=== PATIENT | female | born 1960 | race Caucasian/White ===

== ENCOUNTER 2017-01-16 08:21 | Emergency (ER) | payer MEDICAID ==
[~2017-01-16] VITALS: Ht 160 cm; Wt 93.0 kg
[~2017-01-16 08:21] MED LIST: AZIT250T94 PO; CETI10TA34 PO; HYDR-3011 PO; IBUP-1542 PO; IBUP1TAB PO; MED4DP PO
[2017-01-16 08:22] VITALS: Ht 160 cm; Wt 93.0 kg
[2017-01-16] MEDS ORDERED: KETOROLAC 30 MG INJ IM STA (08:37)
--- NOTE | 2017-01-16 08:53 | ERD ---
ER Documentation Chief Complaint Date/Time DATE: 01/16/17 TIME: 08:47 Chief Complaint l knee pain for past 3 months HPI This a 56-year-old female presents the emergency department today complaining of left knee pain for the past 3 months. States that she has taken Tylenol for pain with limited improvement. States she hears "cracking". 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 Denies any fevers or chills, trauma. ROS All systems reviewed and are negative except as per history of present illness. Medications Home Meds Active Scripts Naproxen* (Naprosyn*) 500 Mg Tablet, 500 MG PO BID Y for PAIN AND/OR INFLAMMATION, #30 TAB Prov:MIK PALUMBO PA-C 01/16/17 Tramadol HCl (Tramadol HCl) 50 Mg Tablet, 50 MG PO Q4 Y for PAIN, #20 TAB Prov:MIK PALUMBO PA-C 01/16/17 Hydroxyzine Hcl* (Hydroxyzine Hcl*) 25 Mg Tablet, 25 MG PO Q8H Y for ITCHING, # 30 TAB Prov:ELISHA FREY MD 05/26/15 Ibuprofen* (Ibuprofen*) 600 Mg Tablet, 600 MG PO Q8 for PAIN AND/OR INFLAMMATION , #30 TAB Prov:ELISHA FREY MD 05/26/15 Methylprednisolone* (Medrol* DOSE PACK) 4 Mg/Dose-Pack Tab.ds.pk, 4 MG PO . DIRECTED for 10 Days, PACKET Prov:ELISHA FREY MD 05/26/15 Azithromycin* (Zithromax*) 250 Mg Tablet, 250 MG PO .ZPACK DIRECTED, #6 TAB TAKE 500 MG (2 TABS) THE FIRST DAY THEN 250 MG (1 TAB) DAYS 2-5 Prov:CANDIDO STEPHENS MD 11/02/14 Ibuprofen/Pseudoephedrine Hcl (Motrin Cold & Sinus Caplet) 1 Tab Tablet, 1 TAB PO TID Y for COUGH for 7 Days Prov:CANDIDO STEPHENS MD 11/02/14 Cetirizine Hcl* (Cetirizine Hcl*) 10 Mg Tab.chew, 10 MG PO DAILY, #30 TAB.CHEW Prov:CANDIDO STEPHENS MD 11/02/14 Allergies Allergies: Coded Allergies: No Known Allergy (Unverified , 09/27/14) PMhx/Soc History of Surgery: No Anesthesia Reaction: No Hx Neurological Disorder: No Hx Respiratory Disorders: No Hx Cardiac Disorders: No Hx Psychiatric Problems: No Hx Miscellaneous Medical Probl: No Hx Alcohol Use: No Hx Substance Use: No Hx Tobacco Use: No Physical Exam Vitals Vital Signs Date Time Temp Pulse Resp B/P Pulse Ox O2 Delivery O2 Flow Rate FiO2 01/16/17 08:22 97.8 82 18 146/74 97 Physical Exam Const: Obese, no acute distress Head: Atraumatic Eyes: Normal Conjunctiva ENT: Normal External Ears, Nose and Mouth. Neck: Full range of motion..~ No meningismus. Resp: Clear to auscultation bilaterally Cardio: Regular rate and rhythm, no murmurs Abd: Soft, non distended. Normal bowel sounds. No tenderness McBurney's. Mild Nonspecific left lower quadrant tenderness Skin: No petechiae or rashes MSK: Left knee with no obvious deformity. mild effusion. No ecchymosis. Full active range of motion with pain. Pulses 2+. Distal neurovascularly intact Neur: Awake and alert Psych: Normal Mood and Affect Results 24 hrs Current Medications Medications (Trade) Dose Ordered Sig/Louisa Route PRN Reason Start Time Stop Time Status Last Admin Dose Admin Ketorolac Tromethamine (Toradol) 30 mg ONCE STAT IM 01/16/17 08:37 01/16/17 08:38 DC 01/16/17 08:52 DIAGNOSTIC IMAGING REPORT Patient: DEBBI ROBLES : 1960 Age: 56 Sex: F [id number] DOS: 01/16/17 0000 Ordering MD: MIK PALUMBO PA-C Location: E Room/Bed: PROCEDURE: XR Knee. CLINICAL INDICATION: Left knee pain TECHNIQUE: Three views of the left knee are available for review. COMPARISON: None available FINDINGS: There is no acute fracture or dislocation. There is mild joint space narrowing of the medial compartment with minimal osseous spurring. There is also slight joint space narrowing of the patellofemoral compartment with osseous spurring. There is a moderate to large joint effusion. The soft tissues are unremarkable. RPTAT: QQ IMPRESSION: 1. No acute bony abnormality. 2. Mild osteoarthrosis of the medial and patellofemoral compartments. 3. Moderate to large joint effusion. An MRI may be helpful for additional evaluation given the joint effusion. .Layne Mcclure MD, Date Time Electronically viewed and signed by .Layne Mcclure MD, on 01/16/2017 09: 48 .T/ CC: MIK PALUMBO PA-C Procedures/MDM This is a 56-year-old female who presents the emergency department today complaining of left knee pain for the past 3 months. Patient's physical exam is benign however patient complained of pain with ambulation and therefore did obtain images given the duration of symptoms. Prior to me leaving the exam room patient mentioned that she sometimes has pain on both sides of her stomach that comes and goes for the past 3-4 months. Upon further questioning patient denied any diarrhea, constipation, fevers, vaginal bleeding. On physical exam patient described her pain as being on her left and right sides of her abdomen however there is no specific tenderness at McBurney' s and really nonspecific tenderness in the left lower quadrant. Did not feel the patient requires laboratory workup or imaging at this time. I explained to the patient that given her duration of symptoms she may follow-up with a primary care doctor. Patient indicated she did not have one and I explained to her that I will give her a list of resources. I have low suspicion for acute surgical abdomen. Patient denies any pain currently. Per the radiology report images of the left knee show no acute bony abnormality. There is mild joint space narrowing of the medial compartment with minimal osseous spurring. There is also slight joint space narrowing of the patellofemoral compartment with osseous spurring. There is a moderate to large joint effusion. Soft tissues are unremarkable. Patient's degenerative joint disease is likely the source of the patient's pain and swelling. I have explained this to her. I have explained to the patient that she needs to follow-up with a primary care doctor for referral to online marketing specialist. Patient understood Patient is afebrile and otherwise well-appearing. Low suspicion for septic joint or gout. Low suspicion for acute fracture dislocation. Patient was given Toradol here in the emergency department. She will given a short course of tramadol, Naprosyn for home. She was also given an Riley wrap. Patient declined crutches to help ambulate. At this time the patient is stable for discharge and outpatient management. Patient should follow up with their PCP in the next 1-2 days. They may return to the emergency department sooner for any persistent or worsening of symptoms. Patient understood and agreed with the plan. Departure Diagnosis: Primary Impression: Knee pain Laterality: left Chronicity: chronic Qualified Code: M25.562 - Chronic pain of left knee Condition: Fair MIK PALUMBO PA-C Jan 16, 2017 08:53
--- NOTE | 2017-01-16 09:48 | RADRPT ---
PROCEDURE: XR Knee. CLINICAL INDICATION: Left knee pain TECHNIQUE: Three views of the left knee are available for review. COMPARISON: None available FINDINGS: There is no acute fracture or dislocation. There is mild joint space narrowing of the medial compar tment with minimal osseous spurring. There is also slight joint space narrowing of the patellofemor al compartment with osseous spurring. There is a moderate to large joint effusion. The soft tissue s are unremarkable. RPTAT: QQ IMPRESSION: 1. No acute bony abnormality. 2. Mild osteoarthrosis of the medial and patellofemoral compartments. 3. Moderate to large joint effusion. An MRI may be helpful for additional evaluation given the join t effusion. .Layne Mcclure MD, MD Date Time Electronically viewed and signed by .Layne Mcclure MD, on 01/16/2017 09:48 .T/
[2017-01-16] MEDS ORDERED: TRAM50TA2 PO (09:55)
[2017-01-16] MEDS ORDERED: NAPR-260 PO (09:56)
[2017-01-16 10:45] VITALS: BP 142/72; PULSE 66; RESP 18; TEMP 97.8
== END 2017-01-16 10:53 | disposition home or self-care (01) ==
LOC: FTE 08:21
DX: M25.562 Pain in left knee (principal)
CPT/HCPCS: 73562; 96372; J1885; Z7502